=== PATIENT | female | born 1945 | race Caucasian/White ===

== ENCOUNTER 2016-05-09 08:00 | Outpatient (CLI) | payer MEDICARE, OTHER | END 2016-05-09 08:01 | disposition home or self-care (01) | DX: I10 Essential (primary) hypertension (principal) ==

== ENCOUNTER 2016-06-19 09:50 | Outpatient (CLI) | payer MEDICARE, OTHER | END 2016-06-19 09:51 | disposition home or self-care (01) | DX: E87.1 Hypo-osmolality and hyponatremia (principal) ==

== ENCOUNTER 2016-07-25 11:19 | Outpatient (CLI) | payer MEDICARE, OTHER | END 2016-07-25 11:20 | DX: E87.1 Hypo-osmolality and hyponatremia (principal) ==

== ENCOUNTER 2016-08-15 16:14 | Outpatient (CLI) | payer MEDICARE, OTHER ==
[2016-08-15 13:42] LABS: CALCIUM 9.5 mg/dL (8.5-10.3); CREATININE 0.6 mg/dL (0.4-1.0); POTASSIUM 4.2 mmol/L (3.5-5.0)
== END 2016-08-15 16:15 | disposition home or self-care (01) ==
LOC: LAB.N 16:14
PROVIDERS: ATTEND Family Medicine
DX: E87.1 Hypo-osmolality and hyponatremia (principal)
CPT/HCPCS: 36415; 80048

== ENCOUNTER 2016-10-06 12:40 | Outpatient (CLI) | payer MEDICARE, OTHER ==
[2016-10-06 13:14] LABS: CALCIUM 9.1 mg/dL (8.5-10.3); CREATININE 0.6 mg/dL (0.4-1.0); POTASSIUM 4.2 mmol/L (3.5-5.0)
== END 2016-10-06 12:41 | disposition home or self-care (01) ==
LOC: LAB 12:40
PROVIDERS: ATTEND Family Medicine
DX: E87.1 Hypo-osmolality and hyponatremia (principal)
CPT/HCPCS: 36415; 80048

== ENCOUNTER → 2016-11-21 | Outpatient (CLI) | payer MEDICARE, OTHER ==
[2016-11-21 21:07] LABS: BASOPHILS % (AUTO) 0.3 %; EOSINOPHILS # (AUTO) 0.1 10^3/uL (0.0-0.7); HCT - HEMATOCRIT 41.7 % (37.0-47.0); LYMPHOCYTES # (AUTO) 1.8 10^3/uL (1.5-3.5); LYMPHOCYTES % (AUTO) 13.7 %; MEAN CORPUSCULAR HEMOGLOBIN 31.7 pg (27.0-31.0); MEAN CORPUSCULAR HGB CONC 33.5 g/dL (32.0-36.0); MEAN CORPUSCULAR VOLUME 94.7 fL (81.0-99.0); MONOCYTES % (AUTO) 7.4 %; NEUTROPHILS # (AUTO) 10.1 10^3/uL (1.5-6.6); NEUTROPHILS % (AUTO) 77.6 %; NUCLEATED RED BLOOD CELLS AUTO 0.1 /100WBC; RED BLOOD COUNT 4.41 10^6/uL (4.20-5.40); RED CELL DISTRIBUTION WIDTH 12.8 % (12.0-15.0)
== END ==
LOC: LAB.N 08:00
PROVIDERS: ATTEND Nurse Practitioner Gerontology
DX: K92.1 Melena (principal)
CPT/HCPCS: 36415; 85025

== ENCOUNTER 2016-11-24 08:00 | Outpatient (CLI) | payer MEDICARE, OTHER | END 2016-11-24 08:01 | disposition home or self-care (01) | LOC: LAB.R 08:00 | PROVIDERS: ATTEND Nurse Practitioner Gerontology | DX: K92.1 Melena (principal) | CPT/HCPCS: 82270 ==

== ENCOUNTER 2017-01-05 13:06 | Outpatient (CLI) | payer MEDICARE, OTHER ==
[2017-01-05 14:01] LABS: CALCIUM 9.4 mg/dL (8.5-10.3); CREATININE 0.7 mg/dL (0.4-1.0); POTASSIUM 3.6 mmol/L (3.5-5.0)
== END 2017-01-05 13:07 | disposition home or self-care (01) ==
LOC: LAB 13:06
PROVIDERS: ATTEND Family Medicine
DX: E87.1 Hypo-osmolality and hyponatremia (principal)
CPT/HCPCS: 36415; 80048

== ENCOUNTER 2017-03-16 10:10 | Outpatient (CLI) | payer MEDICARE, OTHER ==
[2017-03-16 14:06] LABS: BILIRUBIN,URINE NEGATIVE (NEGATIVE); GLUCOSE, URINE (UA) NEGATIVE (NEGATIVE); KETONES,URINE (UA) NEGATIVE (NEGATIVE); LEUKOCYTE ESTERASE, URINE MODERATE (NEGATIVE); NITRITE,URINE POSITIVE (NEGATIVE); OCCULT BLOOD,URINE SMALL (NEGATIVE); PROTEIN,URINE NEGATIVE (NEGATIVE); UROBILINOGEN,URINE 0.2 (NORMAL) E.U./dL (NORMAL)
[2017-03-16 14:14] LABS: CLARITY,URINE HAZY (CLEAR)
[2017-03-16 14:19] LABS: BACTERIA,URINE Moderate /HPF (None Seen); RBC,URINE 0-5 /HPF (0-5); SQUAMOUS EPITHELIAL CELL,UR RARE Squamous (<= Few); WBC CLUMPS,URINE PRESENT
== END 2017-03-16 10:11 | disposition home or self-care (01) ==
LOC: LAB.R 10:10
PROVIDERS: ATTEND Family Medicine
DX: N39.0 Urinary tract infection, site not specified (principal)
CPT/HCPCS: 81001; 87086

== ENCOUNTER 2017-04-26 08:52 | Outpatient (CLI) | payer MEDICARE, OTHER ==
[2017-04-26 13:18] LABS: BASOPHILS % (AUTO) 0.5 %; EOSINOPHILS # (AUTO) 0.2 10^3/uL (0.0-0.7); HGB - HEMOGLOBIN 12.9 g/dL (12.0-16.0); LYMPHOCYTES # (AUTO) 1.6 10^3/uL (1.5-3.5); LYMPHOCYTES % (AUTO) 37.8 %; MEAN CORPUSCULAR HEMOGLOBIN 32.9 pg (27.0-31.0); MEAN CORPUSCULAR HGB CONC 35.1 g/dL (32.0-36.0); MEAN CORPUSCULAR VOLUME 93.6 fL (81.0-99.0); MEAN PLATELET VOLUME 8.9 fL (7.9-10.8); MONOCYTES # (AUTO) 0.4 10^3/uL (0.0-1.0); MONOCYTES % (AUTO) 9.7 %; PLT - PLATELET COUNT 194 10^3/uL (130-450); RED BLOOD COUNT 3.91 10^6/uL (4.20-5.40); RED CELL DISTRIBUTION WIDTH 13.2 % (12.0-15.0); WHITE BLOOD COUNT 4.1 x10^3/uL (4.8-10.8)
[2017-04-26 13:50] LABS: ALBUMIN 3.7 g/dL (3.2-5.5); ALBUMIN/GLOBULIN RATIO 1.4 (1.0-2.2); ALKALINE PHOSPHATASE 114 IU/L (42-121); ALT ALANINE AMINOTRANSFERASE 20 IU/L (10-60); AST ASPARTATE AMINOTRANSFERASE 23 IU/L (10-42); BILIRUBIN,TOTAL 0.3 mg/dL (0.2-1.0); BUN - BLOOD UREA NITROGEN 19 mg/dL (6-20); CALCIUM 8.7 mg/dL (8.5-10.3); CARBON DIOXIDE - CO2 27 mmol/L (21-32); CHLORIDE 99 mmol/L (101-111); CHOL/HDL RATIO 2.5 (<4.4); CHOLESTEROL 231 mg/dL; CREATININE 0.6 mg/dL (0.4-1.0); GFR - MDRD 98 (>89); GLUCOSE 103 mg/dL (70-100); HDL CHOLESTEROL 94 mg/dL; LDL CHOLESTEROL,CALCULATED 121 mg/dL; LDL/HDL RATIO 1.3 (<4.4); SODIUM 130 mmol/L (135-145); TOTAL PROTEIN 6.3 g/dL (6.7-8.2); VLDL CHOLESTEROL 16 mg/dL
== END 2017-04-26 08:53 | disposition home or self-care (01) ==
LOC: LAB.N 08:52
PROVIDERS: ATTEND Family Medicine
DX: Z51.81 Encounter for therapeutic drug level monitoring (principal); E87.1 Hypo-osmolality and hyponatremia; I10 Essential (primary) hypertension; R56.9 Unspecified convulsions
CPT/HCPCS: 36415; 80053; 80061; 83721; 84443; 85025

== ENCOUNTER 2017-10-24 09:05 | Outpatient (CLI) | payer MEDICARE, OTHER ==
[2017-10-24 09:35] LABS: CALCIUM 9.2 mg/dL (8.5-10.3); CREATININE 0.6 mg/dL (0.4-1.0)
== END 2017-10-24 09:06 | disposition home or self-care (01) ==
LOC: LAB 09:05
PROVIDERS: ATTEND Family Medicine
DX: E87.1 Hypo-osmolality and hyponatremia (principal); I10 Essential (primary) hypertension
CPT/HCPCS: 36415; 80048

== ENCOUNTER 2018-02-22 11:24 | Outpatient (CLI) | payer MEDICARE, OTHER | END 2018-02-22 23:59 | disposition home or self-care (01) | LOC: RT.N 11:24 | PROVIDERS: ATTEND Family Medicine | DX: R06.00 Dyspnea, unspecified (principal) | CPT/HCPCS: 93005 ==

== ENCOUNTER 2018-04-23 08:07 | Outpatient (CLI) | payer MEDICARE, OTHER ==
[2018-04-23 08:33] LABS: CALCIUM 9.2 mg/dL (8.5-10.3); CREATININE 0.6 mg/dL (0.4-1.0)
== END 2018-04-23 08:08 | disposition home or self-care (01) ==
LOC: LAB 08:07
PROVIDERS: ATTEND Nurse Practitioner
DX: I10 Essential (primary) hypertension (principal)
CPT/HCPCS: 36415; 80048

== ENCOUNTER 2018-11-25 07:01 | Outpatient (CLI) | payer MEDICARE, OTHER ==
[2018-11-25 07:41] LABS: BASOPHILS % (AUTO) 0.7 %; EOSINOPHILS # (AUTO) 0.4 10^3/uL (0.0-0.7); EOSINOPHILS % (AUTO) 6.3 %; HGB - HEMOGLOBIN 13.4 g/dL (12.0-16.0); LYMPHOCYTES # (AUTO) 2.3 10^3/uL (1.5-3.5); MEAN CORPUSCULAR HEMOGLOBIN 31.5 pg (27.0-31.0); MEAN CORPUSCULAR HGB CONC 33.7 g/dL (32.0-36.0); MEAN CORPUSCULAR VOLUME 93.6 fL (81.0-99.0); MEAN PLATELET VOLUME 10.3 fL (7.9-10.8); MONOCYTES # (AUTO) 0.5 10^3/uL (0.0-1.0); MONOCYTES % (AUTO) 8.6 %; NEUTROPHILS # (AUTO) 2.5 10^3/uL (1.5-6.6); NEUTROPHILS % (AUTO) 44.4 %; PLT - PLATELET COUNT 239 10^3/uL (130-450); RED BLOOD COUNT 4.25 10^6/uL (4.20-5.40); WHITE BLOOD COUNT 5.7 x10^3/uL (4.8-10.8)
[2018-11-25 08:08] LABS: ALBUMIN 3.7 g/dL (3.2-5.5); ALBUMIN/GLOBULIN RATIO 1.2 (1.0-2.2); ALKALINE PHOSPHATASE 121 IU/L (42-121); ALT ALANINE AMINOTRANSFERASE 20 IU/L (10-60); AST ASPARTATE AMINOTRANSFERASE 24 IU/L (10-42); BILIRUBIN,TOTAL 0.5 mg/dL (0.2-1.0); BUN - BLOOD UREA NITROGEN 25 mg/dL (6-20); CALCIUM 9.2 mg/dL (8.5-10.3); CARBON DIOXIDE - CO2 28 mmol/L (21-32); CHLORIDE 102 mmol/L (101-111); CREATININE 0.6 mg/dL (0.4-1.0); GFR - MDRD 98 (>89); GLUCOSE 104 mg/dL (70-100); SODIUM 136 mmol/L (135-145); TOTAL PROTEIN 6.9 g/dL (6.7-8.2)
== END 2018-11-25 07:02 | disposition home or self-care (01) ==
LOC: LAB 07:01
PROVIDERS: ATTEND Psychiatry & Neurology Neurology
DX: Z51.81 Encounter for therapeutic drug level monitoring (principal)
CPT/HCPCS: 36415; 80053; 80156; 81599; 85025

== ENCOUNTER 2019-02-21 07:16 | Outpatient (CLI) | payer MEDICARE, OTHER ==
[2019-02-21 07:56] LABS: ALBUMIN/GLOBULIN RATIO 1.3 (1.0-2.2); BILIRUBIN,TOTAL 0.5 mg/dL (0.2-1.0); CREATININE 0.7 mg/dL (0.4-1.0)
[2019-02-21 08:01] LABS: BASOPHILS % (AUTO) 0.8 %; EOSINOPHILS # (AUTO) 0.2 10^3/uL (0.0-0.7); HGB - HEMOGLOBIN 13.5 g/dL (12.0-16.0); LYMPHOCYTES # (AUTO) 2.1 10^3/uL (1.5-3.5); LYMPHOCYTES % (AUTO) 43.4 %; MEAN CORPUSCULAR HEMOGLOBIN 32.5 pg (27.0-31.0); MEAN CORPUSCULAR HGB CONC 34.8 g/dL (32.0-36.0); MEAN CORPUSCULAR VOLUME 93.3 fL (81.0-99.0); MEAN PLATELET VOLUME 10.4 fL (7.9-10.8); MONOCYTES # (AUTO) 0.4 10^3/uL (0.0-1.0); MONOCYTES % (AUTO) 8.9 %; NEUTROPHILS % (AUTO) 41.7 %; PLT - PLATELET COUNT 231 10^3/uL (130-450); RED BLOOD COUNT 4.16 10^6/uL (4.20-5.40); RED CELL DISTRIBUTION WIDTH 12.6 % (12.0-15.0); WHITE BLOOD COUNT 4.8 x10^3/uL (4.8-10.8)
== END 2019-02-21 07:17 | disposition home or self-care (01) ==
LOC: LAB 07:16
PROVIDERS: ATTEND Psychiatry & Neurology Neurology
DX: Z51.81 Encounter for therapeutic drug level monitoring (principal); Z79.899 Other long term (current) drug therapy
CPT/HCPCS: 36415; 80053; 80156; 80157; 81599; 85025

== ENCOUNTER 2019-04-07 14:18 | Outpatient (CLI) | payer MEDICARE, OTHER ==
[2019-04-07 14:48] LABS: BILIRUBIN,URINE NEGATIVE (NEGATIVE); GLUCOSE, URINE (UA) NEGATIVE (NEGATIVE); KETONES,URINE (UA) NEGATIVE (NEGATIVE); LEUKOCYTE ESTERASE, URINE NEGATIVE (NEGATIVE); NITRITE,URINE NEGATIVE (NEGATIVE); OCCULT BLOOD,URINE NEGATIVE (NEGATIVE); PROTEIN,URINE NEGATIVE (NEGATIVE); UROBILINOGEN,URINE 0.2 (NORMAL) E.U./dL (NORMAL)
[2019-04-07 14:51] LABS: CLARITY,URINE CLEAR (CLEAR)
[2019-04-07 14:57] LABS: BASOPHILS # (AUTO) 0.1 10^3/uL (0.0-0.1); BASOPHILS % (AUTO) 0.8 %; EOSINOPHILS # (AUTO) 0.3 10^3/uL (0.0-0.7); EOSINOPHILS % (AUTO) 4.3 %; LYMPHOCYTES % (AUTO) 32.3 %; MEAN CORPUSCULAR HEMOGLOBIN 32.4 pg (27.0-31.0); MEAN CORPUSCULAR HGB CONC 34.1 g/dL (32.0-36.0); MEAN CORPUSCULAR VOLUME 95.1 fL (81.0-99.0); MEAN PLATELET VOLUME 10.3 fL (7.9-10.8); MONOCYTES # (AUTO) 0.5 10^3/uL (0.0-1.0); MONOCYTES % (AUTO) 7.6 %; NEUTROPHILS # (AUTO) 3.3 10^3/uL (1.5-6.6); NEUTROPHILS % (AUTO) 54.7 %; PLT - PLATELET COUNT 245 10^3/uL (130-450); RED BLOOD COUNT 4.32 10^6/uL (4.20-5.40); RED CELL DISTRIBUTION WIDTH 12.5 % (12.0-15.0); WHITE BLOOD COUNT 6.1 x10^3/uL (4.8-10.8)
[2019-04-07 15:03] LABS: CALCIUM 9.4 mg/dL (8.5-10.3); CREATININE 0.7 mg/dL (0.4-1.0)
[2019-04-07 15:25] LABS: HB2 TOTAL 13.9 g/dL; HEMOGLOBIN A1C 0.6 g/dL; HEMOGLOBIN A1C % 6.1 % (4.6-6.2)
== END 2019-04-07 14:19 | disposition home or self-care (01) ==
LOC: LAB 14:18
PROVIDERS: ATTEND Orthopaedic Surgery
DX: Z01.812 Encounter for preprocedural laboratory examination (principal); R73.9 Hyperglycemia, unspecified; N39.0 Urinary tract infection, site not specified
CPT/HCPCS: 36415; 80048; 81001; 81003; 83036; 85025; 85027; 87086

== ENCOUNTER 2019-10-17 12:37 | Outpatient (CLI) | payer MEDICARE, OTHER | END 2019-10-17 12:38 | disposition home or self-care (01) | LOC: COV 12:37 | PROVIDERS: ATTEND Family Medicine | DX: R05 Cough (principal); R53.83 Other fatigue; R11.2 Nausea with vomiting, unspecified; Z20.828 Contact with and (suspected) exposure to other viral communicable diseases ==

== ENCOUNTER 2019-10-22 07:49 | Outpatient (CLI) | payer MEDICARE, OTHER ==
[2019-10-22 08:02] LABS: BASOPHILS % (AUTO) 0.7 %; EOSINOPHILS # (AUTO) 0.5 10^3/uL (0.0-0.7); EOSINOPHILS % (AUTO) 9.2 %; HGB - HEMOGLOBIN 13.7 g/dL (12.0-16.0); LYMPHOCYTES # (AUTO) 2.4 10^3/uL (1.5-3.5); LYMPHOCYTES % (AUTO) 41.2 %; MEAN CORPUSCULAR HEMOGLOBIN 31.2 pg (27.0-31.0); MEAN CORPUSCULAR HGB CONC 32.9 g/dL (32.0-36.0); MEAN CORPUSCULAR VOLUME 94.8 fL (81.0-99.0); MEAN PLATELET VOLUME 10.4 fL (7.9-10.8); MONOCYTES # (AUTO) 0.6 10^3/uL (0.0-1.0); MONOCYTES % (AUTO) 9.5 %; NEUTROPHILS # (AUTO) 2.3 10^3/uL (1.5-6.6); NEUTROPHILS % (AUTO) 39.2 %; PLT - PLATELET COUNT 229 10^3/uL (130-450); RED BLOOD COUNT 4.39 10^6/uL (4.20-5.40); RED CELL DISTRIBUTION WIDTH 12.8 % (12.0-15.0); WHITE BLOOD COUNT 5.8 x10^3/uL (4.8-10.8)
[2019-10-22 08:24] LABS: ALBUMIN/GLOBULIN RATIO 1.3 (1.0-2.2); ALKALINE PHOSPHATASE 130 IU/L (42-121); ALT ALANINE AMINOTRANSFERASE 18 IU/L (10-60); AST ASPARTATE AMINOTRANSFERASE 20 IU/L (10-42); BILIRUBIN,TOTAL 0.6 mg/dL (0.2-1.0); BUN - BLOOD UREA NITROGEN 30 mg/dL (6-20); CALCIUM 9.3 mg/dL (8.5-10.3); CARBAMAZEPINE (TEGRETOL) 6.3 ug/mL; CARBON DIOXIDE - CO2 27 mmol/L (21-32); CHLORIDE 103 mmol/L (101-111); CREATININE 0.7 mg/dL (0.4-1.0); GLUCOSE 115 mg/dL (70-100); SODIUM 136 mmol/L (135-145)
== END 2019-10-22 07:50 | disposition home or self-care (01) ==
LOC: LAB 07:49
PROVIDERS: ATTEND Psychiatry & Neurology Neurology
DX: Z51.81 Encounter for therapeutic drug level monitoring (principal); Z79.899 Other long term (current) drug therapy
CPT/HCPCS: 36415; 80053; 80156; 85025

== ENCOUNTER 2020-04-30 07:00 | Outpatient (CLI) | payer MEDICARE, OTHER ==
[2020-04-30 08:47] LABS: ALBUMIN/GLOBULIN RATIO 1.3 (1.0-2.2); ALKALINE PHOSPHATASE 121 IU/L (42-121); ALT ALANINE AMINOTRANSFERASE 21 IU/L (10-60); AST ASPARTATE AMINOTRANSFERASE 23 IU/L (10-42); BILIRUBIN,TOTAL 0.7 mg/dL (0.2-1.0); BUN - BLOOD UREA NITROGEN 26 mg/dL (6-20); CALCIUM 9.4 mg/dL (8.5-10.3); CARBAMAZEPINE (TEGRETOL) 7.7 ug/mL; CARBON DIOXIDE - CO2 26 mmol/L (21-32); CHLORIDE 103 mmol/L (101-111); CK- CREATINE KINASE 54 IU/L (22-269); CREATININE 0.6 mg/dL (0.4-1.0); GLUCOSE 104 mg/dL (70-100)
== END 2020-04-30 23:59 | disposition home or self-care (01) ==
LOC: LAB 07:00
PROVIDERS: ATTEND Psychiatry & Neurology Neurology
DX: G40.909 Epilepsy, unspecified, not intractable, without status epilepticus (principal); Z51.81 Encounter for therapeutic drug level monitoring; M79.10 Myalgia, unspecified site
CPT/HCPCS: 36415; 80053; 80156; 82085; 82550; 84443

== ENCOUNTER 2020-05-12 09:33 | Outpatient (CLI) | payer MEDICARE, OTHER | END 2020-05-12 09:34 | disposition home or self-care (01) | LOC: LAB 09:33 | PROVIDERS: ATTEND Internal Medicine Cardiovascular Disease | DX: I48.91 Unspecified atrial fibrillation (principal); I10 Essential (primary) hypertension | CPT/HCPCS: 36415; 83735; 84443 ==

== ENCOUNTER 2020-05-21 11:37 | Outpatient (CLI) | payer MEDICARE, OTHER ==
[2020-05-21 18:33] LABS: CALCIUM 9.7 mg/dL (8.5-10.3); CREATININE 0.7 mg/dL (0.4-1.0); POTASSIUM 4.6 mmol/L (3.5-5.0)
== END 2020-05-21 11:38 | disposition home or self-care (01) ==
LOC: LAB.N 11:37
PROVIDERS: ATTEND Internal Medicine Cardiovascular Disease
DX: I10 Essential (primary) hypertension (principal)
CPT/HCPCS: 36415; 80048

== ENCOUNTER 2020-05-28 08:00 | Outpatient (CLI) | payer MEDICARE, OTHER | END 2020-05-28 23:59 | disposition home or self-care (01) | LOC: LAB.N 08:00 | PROVIDERS: ATTEND Nurse Practitioner Family | DX: Z79.01 Long term (current) use of anticoagulants (principal) ==

== ENCOUNTER 2020-06-02 08:00 | Outpatient (CLI) | payer MEDICARE, OTHER | END 2020-06-02 23:59 | disposition home or self-care (01) | LOC: LAB.WCP 08:00 | PROVIDERS: ATTEND Nurse Practitioner Family | DX: Z79.01 Long term (current) use of anticoagulants (principal) ==

== ENCOUNTER 2020-06-11 08:00 | Outpatient (CLI) | payer MEDICARE, OTHER | END 2020-06-11 23:59 | disposition home or self-care (01) | LOC: LAB.N 08:00 | PROVIDERS: ATTEND Nurse Practitioner Family | DX: Z51.81 Encounter for therapeutic drug level monitoring (principal); Z79.01 Long term (current) use of anticoagulants ==

== ENCOUNTER 2020-07-02 08:00 | Outpatient (CLI) | payer MEDICARE, OTHER | END 2020-07-02 23:59 | disposition home or self-care (01) | LOC: LAB.N 08:00 | PROVIDERS: ATTEND Nurse Practitioner Family | DX: I48.91 Unspecified atrial fibrillation (principal); Z79.01 Long term (current) use of anticoagulants ==

== ENCOUNTER 2020-07-09 08:00 | Outpatient (CLI) | payer MEDICARE, OTHER | END 2020-07-09 23:59 | disposition home or self-care (01) | LOC: LAB.N 08:00 | PROVIDERS: ATTEND Nurse Practitioner Family | DX: I48.91 Unspecified atrial fibrillation (principal); Z79.01 Long term (current) use of anticoagulants ==

== ENCOUNTER 2020-07-23 08:00 | Outpatient (CLI) | payer MEDICARE, OTHER | END 2020-07-23 23:59 | disposition home or self-care (01) | LOC: LAB.N 08:00 | PROVIDERS: ATTEND Nurse Practitioner Family | DX: I48.91 Unspecified atrial fibrillation (principal); Z79.01 Long term (current) use of anticoagulants ==

== ENCOUNTER 2020-08-06 08:00 | Outpatient (CLI) | payer MEDICARE, OTHER | END 2020-08-06 23:59 | disposition home or self-care (01) | LOC: LAB.N 08:00 | PROVIDERS: ATTEND Nurse Practitioner Family | DX: I48.91 Unspecified atrial fibrillation (principal); Z79.01 Long term (current) use of anticoagulants ==

== ENCOUNTER 2020-08-20 10:41 | Outpatient (CLI) | payer MEDICARE, OTHER | END 2020-08-20 10:42 | disposition home or self-care (01) | LOC: LAB 10:41 | PROVIDERS: ATTEND Internal Medicine Cardiovascular Disease | DX: Z01.812 Encounter for preprocedural laboratory examination (principal); I48.19 Other persistent atrial fibrillation; I10 Essential (primary) hypertension; Z20.822 Contact with and (suspected) exposure to COVID-19 ==

== ENCOUNTER 2020-08-31 10:06 | Outpatient (CLI) | payer MEDICARE, OTHER ==
[2020-08-31 11:02] VITALS: BP 142/86
--- NOTE | 2020-08-31 11:02 | SLEEP CARE CONSULTATION ---
Information from patient questionnaire entered by Ora Yo. I have reviewed and concur with the information entered by Ora Yo. This document represents the service I personally performed and the decisions made by me, Scarlett Gil ARNP. History of Present Illness Service Date and Time: 08/31/2020 1006 Reason for Visit: New patient Chief Complaint: reports: Snoring, Observed pauses in breathing (noted during cardiac monitoring), Fatigue (takes a lot of medications that cause fatigue), Frequent awakenings at night. denies: Unrefreshed sleep (depends on hours slept) Date of Onset: snoring: on and off, not loud, want to exercise Usual bedtime: 10 pm Time it takes to fall asleep: 30-60 minutes Snores at night: Yes (purr sounding) Observed to quit breathing while asleep: No Sleeps alone due to snoring: No Number of times waking at night: 5 Reasons for waking at night: reports: Bathroom. denies: Choking, Snoring, Gasping for air Toss, Turn, or Twitch while sleeping: Yes Recalls having dreams: Yes Usually gets out of bed at: 6:45 am Feels refreshed in the morning: Yes (some) Morning headache: No Sleepy or fatigued during the day: Yes Ever fallen asleep while driving: No Takes day naps: Yes (a little; 4 days of week, about 15 minutes long) Dreams during day naps: No Prior sleep studies: No Additional HPI information: I had the pleasure of seeing MEGHA GIBSON today regarding the possibility of her having a sleep disorder. Her current complaints are observed pauses in breathing, snoring, fatigue and frequent night awakenings. 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 Continue present she has a color television console monitor that showed a 3-minute pause in her breathing and she does have a history of snoring so her doctor sent her here for evaluation.She is on warfarin for her atrial fibrillation. Her is on a CPAP machine and she states she thinks that they will pause with when she held her breath to listen to his breathing. She states she is on many medications that do cause fatigue and sometimes she may awaken refreshed but overall is usually somewhat refreshed in the mornings. She takes naps about 4 days out of the week for about 15 minutes. She is trying to lose weight to take the pressure off of her knees. She does have a history of a hip replacement. - Parasomnia Symptoms Ever been unable to move upon waking from sleep: No Walks in sleep: No Talks in sleep: No Ever acted out dreams in sleep: No Ever felt weak in the knees when startled or emotional: No Bothered by creepy, crawly, restless sensations in legs: Yes Problems with memory or concentration: No Subjective Initial [place] Sleepiness Scale score: 11 (in 2020) Past Medical History Past Medical History: reports: Hypertension, Arthritis, Arrythmia (Atrial fibrillation), Anxiety, Other (epilepsy, hives) Social History The patient's occupation is a Retired. Patient is and lives in [place]. Have you smoked in the past 12 months: No Alcohol use: Yes Alcohol amount and frequency: 1 drink of wine 1-2 times a week Caffeine use: Yes Caffeine amount and frequency: 8 oz every morning Family History Family history of sleep disordered breathing: No (daughter snores) Allergies and Home Medications Drug allergies reviewed: Yes (primidone) Home medication list reviewed: Yes Allergy and home medication list: Zyrtec Tegretol Clonidine Losartan Warfarin Multi-Vitamin, gummy Calcium Review of Systems Weight gain over past 5 years: 50 Weight loss over past 5 years: 11-15 Cardiovascular: reports: high blood pressure, irregular heart rate or pulse Urinary: reports: frequency (every hour at night) Neurological: reports: seizure (none since 1972) Psychiatric: reports: anxiety (stress) Ear/Nose/Throat: reports: sinus problems (drip), tonsillectomy (at 5 yrs old), wisdom teeth removed Immunologic: reports: rash, itching Physical Exam Blood Pressure: 142/86 Cuff size: long Heart Rate: 75 O2 Saturation: 97 Height: 5 ft 5 in Weight: 190 lb Body Mass Index: 31.6 BMI Classification: Obese Neck circumference: 15.25 (inches) Soft palate: long Hard palate: normal Uvula: normal Uvula visualization: 100% Mallampati Class I Tongue: enlarged in size with teeth coughlin on lateral edges Tonsils: absent bilaterally Neck: normal w/o lymphadenopathy or thyromegaly Heart: irregular rhythm Lungs: clear bilaterally Impression and Plan 1. Suspected Obstructive Sleep Apnea-Hypopnea Syndrome, as suggested by a history of loud and irregular snoring, observed cessation of breath while asleep, and frequent awakening during the night. Narrow oropharynx and obesity are common predisposing factors for obstructive sleep apnea-hypopnea syndrome. I recommend proceeding to polysomnography to confirm the diagnosis and to assess severity. If the patient has significant sleep disordered breathing, a manual CPAP titration study will also be performed to find the optimal treatment pressure. I informed the patient of what the sleep studies involve and after some discussion, obtained agreement to proceed. The pathophysiology of obstructive sleep apnea-hypopnea syndrome was discussed with the patient and health risks of cardiovascular and cerebrovascular disease if not treated. AAS brochure for obstructive sleep apnea-hypopnea syndrome given and reviewed. Risks of drowsy driving discussed in detail and patient advised to avoid long distance driving and to mechanic recovery at the first sign of drowsiness. Patient agreed to plan. Patient is trying to lose weight to take pressure off her knees. * Schedule polysomnography +- manual CPAP titration study and return in 1-2 weeks after the study to discuss result and initiate therapy. * Avoid long distance driving or driving when feeling sleepy. * Avoid alcohol, sedative and muscle relaxant around bedtime. * Continue to try to lose weight. * Review instructions provided by trained office staff on how to prepare for the sleep study. * Return for follow-up after sleep study completed. Counseling Topics: Weight loss health impact Visit Type: In Office Time Spent with Patient (minutes): 37 Provider Statement: I spent 100% of the Face to Face Visit with the patient with greater than 50% spent counseling the patient and coordination of care.
== END 2020-08-31 10:07 | disposition home or self-care (01) ==
LOC: SC 10:06
PROVIDERS: ATTEND Nurse Practitioner Family
DX: R06.81 Apnea, not elsewhere classified (principal); G47.8 Other sleep disorders; R06.83 Snoring; E66.9 Obesity, unspecified; Z68.31 Body mass index [BMI] 31.0-31.9, adult
CPT/HCPCS: 99203; G0463; 99212

== ENCOUNTER 2020-09-08 08:00 | Outpatient (CLI) | payer MEDICARE, OTHER | END 2020-09-08 23:59 | disposition home or self-care (01) | LOC: LAB.F 08:00 | PROVIDERS: ATTEND Family Medicine | DX: I48.91 Unspecified atrial fibrillation (principal); Z79.01 Long term (current) use of anticoagulants ==

== ENCOUNTER 2020-09-15 08:00 | Outpatient (CLI) | payer MEDICARE, OTHER | END 2020-09-15 23:59 | disposition home or self-care (01) | LOC: LAB.N 08:00 | PROVIDERS: ATTEND Family Medicine | DX: I48.91 Unspecified atrial fibrillation (principal); Z79.01 Long term (current) use of anticoagulants ==

== ENCOUNTER 2020-09-22 08:00 | Outpatient (CLI) | payer MEDICARE, OTHER | END 2020-09-22 23:59 | disposition home or self-care (01) | LOC: LAB.N 08:00 | PROVIDERS: ATTEND Family Medicine | DX: I48.91 Unspecified atrial fibrillation (principal); Z79.01 Long term (current) use of anticoagulants ==

== ENCOUNTER 2020-09-29 08:00 | Outpatient (CLI) | payer MEDICARE, OTHER | END 2020-09-29 23:59 | disposition home or self-care (01) | LOC: LAB.N 08:00 | PROVIDERS: ATTEND Family Medicine | DX: I48.91 Unspecified atrial fibrillation (principal); Z79.01 Long term (current) use of anticoagulants ==

== ENCOUNTER 2020-10-06 08:00 | Outpatient (CLI) | payer MEDICARE, OTHER | END 2020-10-06 23:59 | disposition home or self-care (01) | LOC: LAB.N 08:00 | PROVIDERS: ATTEND Family Medicine | DX: I48.91 Unspecified atrial fibrillation (principal); Z79.01 Long term (current) use of anticoagulants ==

== ENCOUNTER 2020-10-15 08:00 | Outpatient (CLI) | payer MEDICARE, OTHER | END 2020-10-15 23:59 | disposition home or self-care (01) | LOC: LAB.N 08:00 | PROVIDERS: ATTEND Family Medicine | DX: I48.91 Unspecified atrial fibrillation (principal); Z79.01 Long term (current) use of anticoagulants ==

== ENCOUNTER 2020-10-20 08:00 | Outpatient (CLI) | payer MEDICARE, OTHER | END 2020-10-20 23:59 | disposition home or self-care (01) | LOC: LAB.N 08:00 | PROVIDERS: ATTEND Family Medicine | DX: I48.91 Unspecified atrial fibrillation (principal); Z79.01 Long term (current) use of anticoagulants ==

== ENCOUNTER 2020-10-27 08:00 | Outpatient (CLI) | payer MEDICARE, OTHER | END 2020-10-27 23:59 | disposition home or self-care (01) | LOC: LAB.N 08:00 | PROVIDERS: ATTEND Family Medicine | DX: I48.91 Unspecified atrial fibrillation (principal); Z79.01 Long term (current) use of anticoagulants ==

== ENCOUNTER 2020-10-29 19:37 | Outpatient (CLI) | payer MEDICARE, OTHER | END 2020-10-29 19:38 | disposition home or self-care (01) | LOC: SC 19:37 | PROVIDERS: ATTEND Nurse Practitioner Family | DX: G47.61 Periodic limb movement disorder (principal); E66.9 Obesity, unspecified; Z68.31 Body mass index [BMI] 31.0-31.9, adult | CPT/HCPCS: 95810 ==

== ENCOUNTER 2020-11-02 07:25 | Outpatient (CLI) | payer MEDICARE, OTHER ==
[2020-11-02 08:07] LABS: ALBUMIN 3.9 g/dL (3.2-5.5); ALBUMIN/GLOBULIN RATIO 1.3 (1.0-2.2); BILIRUBIN,TOTAL 0.5 mg/dL (0.2-1.0); CALCIUM 9.6 mg/dL (8.5-10.3); CREATININE 0.7 mg/dL (0.4-1.0); POTASSIUM 4.1 mmol/L (3.5-5.0)
== END 2020-11-02 07:26 | disposition home or self-care (01) ==
LOC: LAB 07:25
PROVIDERS: ATTEND Physician Assistant Medical
DX: I48.0 Paroxysmal atrial fibrillation (principal)
CPT/HCPCS: 36415; 80053

== ENCOUNTER 2020-11-03 08:00 | Outpatient (CLI) | payer MEDICARE, OTHER | END 2020-11-03 23:59 | disposition home or self-care (01) | LOC: LAB.WCP 08:00 | PROVIDERS: ATTEND Family Medicine | DX: I48.91 Unspecified atrial fibrillation (principal); Z79.01 Long term (current) use of anticoagulants ==

== ENCOUNTER 2020-11-11 10:31 | Outpatient (CLI) | payer MEDICARE, OTHER ==
--- NOTE | 2020-11-11 10:59 | SLEEP CARE CONSULTATION ---
Information from patient questionnaire entered by Ora Yo. I have reviewed and concur with the information entered by Ora Yo. This document represents the service I personally performed and the decisions made by , Scarlett Gil ARNP. History of Present Illness Service Date and Time: 11/11/2020 1031 Initial [place] Sleepiness Scale score: 11 (in 2020) Current [place] Sleepiness Scale score: 4 Additional HPI information: MEGHA GIBSON returns with spouse for follow up and results of the recently performed polysomnography. The patient was informed of the following findings: No significant sleep disordered breathing with an average AHI of 0.9 and a tamia oxygen saturation of 89%. She had some light and infrequent snoring and some mild periodic leg movements of sleep. I explained the pathophysiology behind obstructive sleep apnea. Patient does not have sleep apnea and was advised how weight gain could increase the risk of developing sleep apnea in the future. I strongly encouraged the patient to lose weight. Patient has light and infrequent snoring. Snoring can be reduced by weight loss. Weight loss is best achieved with diet consult. Patient instructed to contact PCP for referral. Snoring can also be treated with an oral appliance from a dentist. Advised to check insurance coverage. In addition, an ENT evaluation can be do to see if other treatment is indicated. Patient counseled not drink alcohol less than 4 hours before bedtime as it can increase snoring and apnea. Patient was cautioned about risks of drowsy driving until sleepiness symptoms resolve. Sleep Study - Results Type of Sleep Study: Polysomnography Prior sleep studies: No Polysomnography/Home Sleep Study results: IMPRESSION: The quality of the study is good. The patient had reduced sleep efficiency due to frequent awakenings during the night. The sleep architecture was abnormal for sleep fragmentation and reduced amount of time spent in REM sleep. Respiratory monitoring showed no significant sleep disordered breathing (AHI = 0.9) or hypoxia (tamia oxygen saturation of 89%). The rare respiratory events occurred mainly during limited supine sleep (supine AHI = 2.7; non-supine = 0.79). Snore was light and infrequent. There was mild periodic leg movement of sleep not contributing to the sleep fragmentation. Cardiac rhythm was normal sinus rhythm without significant arrhythmia. No abnormal behavior (parasomnia) observed during the night. Allergies and Home Medications Home medication list reviewed: Yes (Pacerone - heart) Review of Systems Review of systems same as previous: No (cardioversion for Afib; NOAH) Physical Exam Heart Rate: 66 O2 Saturation: 100 Height: 5 ft 5 in Weight: 192 lb Body Mass Index: 31.9 BMI Classification: Obese Impression and Plan 1. Periodic limb movement, mild, that did not fragment patients sleep. Periodic limb movement of sleep (PLMS) is characterized by episodes of repetitive limb movements that occur during sleep and usually involve the lower limbs. The etiology is unknown but can be associated with restless leg syndrome (RLS), neuropathy, spinal cord diseases, kidney disease, rheumatological disorders, narcolepsy, obstructive sleep apnea, and REM sleep behavior disorder. Other factors that can increase PLMS and/or RLS are heredity and iron deficiency as reflected by a low serum ferritin level below 50 to 75mcg / L. Several medications can precipitate or aggravate PLMS such as selective serotonin re- uptake inhibitor antidepressants, tricyclic antidepressants, lithium, and dopamine receptor antagonists with the exception of bupropion. Caffeine can also aggravate PLMS and should be avoided. Sleep hygiene methods can also improve sleep as well as lifestyle changes such as regular exercise. Patient was advised that no treatment is needed at this time. If symptoms increase, then further evaluation is indicated. * Attempt to lose weight * Avoid alcohol consumption near bedtime * The patient is cautioned about driving until sleepiness is completely resolved. * Return as needed. Counseling Topics: Weight loss health impact Visit Type: In Office Other Participants: Spouse/Significant Other Time Spent with Patient (minutes): 20 Provider Statement: I spent 100% of the Face to Face Visit with the patient with greater than 50% spent counseling the patient and coordination of care.
== END 2020-11-11 10:32 | disposition home or self-care (01) ==
LOC: SC 10:31
PROVIDERS: ATTEND Nurse Practitioner Family
DX: G47.61 Periodic limb movement disorder (principal)
CPT/HCPCS: 99213; G0463; 99212

== ENCOUNTER 2020-11-17 08:00 | Outpatient (CLI) | payer MEDICARE, OTHER ==
[2020-11-17 17:56] LABS: BASOPHILS % (AUTO) 0.8 %; EOSINOPHILS # (AUTO) 0.2 10^3/uL (0.0-0.7); EOSINOPHILS % (AUTO) 4.6 %; HCT - HEMATOCRIT 40.6 % (37.0-47.0); HGB - HEMOGLOBIN 13.2 g/dL (12.0-16.0); LYMPHOCYTES # (AUTO) 1.8 10^3/uL (1.5-3.5); LYMPHOCYTES % (AUTO) 36.2 %; MEAN CORPUSCULAR HEMOGLOBIN 31.9 pg (27.0-31.0); MEAN CORPUSCULAR HGB CONC 32.5 g/dL (32.0-36.0); MEAN CORPUSCULAR VOLUME 98.1 fL (81.0-99.0); MEAN PLATELET VOLUME 10.9 fL (7.9-10.8); MONOCYTES # (AUTO) 0.5 10^3/uL (0.0-1.0); MONOCYTES % (AUTO) 9.9 %; NEUTROPHILS # (AUTO) 2.4 10^3/uL (1.5-6.6); NEUTROPHILS % (AUTO) 48.1 %; PLT - PLATELET COUNT 249 10^3/uL (130-450); RED BLOOD COUNT 4.14 10^6/uL (4.20-5.40); RED CELL DISTRIBUTION WIDTH 12.6 % (12.0-15.0)
[2020-11-17 18:11] LABS: INR 2.3 (0.8-1.2); PT - PROTHROMBIN TIME 25.5 secs (9.9-12.6)
[2020-11-17 18:24] LABS: CHOL/HDL RATIO 2.4 (<4.4); CHOLESTEROL 270 mg/dL; HDL CHOLESTEROL 112 mg/dL; LDL CHOLESTEROL,CALCULATED 142 mg/dL; LDL/HDL RATIO 1.3 (<4.4); TRIGLYCERIDES 78 mg/dL; VLDL CHOLESTEROL 16 mg/dL
[2020-11-17 18:27] LABS: THYROID STIMULATING HORMONE 2.34 uIU/mL (0.34-5.60)
[2020-11-17 20:27] LABS: ESTIMATED AVERAGE GLUCOSE 114 mg/dL (70-100); HEMOGLOBIN A1c% 5.6 % (4.27-6.07)
== END 2020-11-17 23:59 | disposition home or self-care (01) ==
LOC: LAB.WCP 08:00
PROVIDERS: ATTEND Family Medicine
DX: I48.91 Unspecified atrial fibrillation (principal); R73.01 Impaired fasting glucose
CPT/HCPCS: 36415; 80061; 83036; 83721; 84443; 85025; 85610

== ENCOUNTER 2020-11-24 08:00 | Outpatient (CLI) | payer MEDICARE, OTHER | END 2020-11-24 23:59 | disposition home or self-care (01) | LOC: LAB.WCP 08:00 | PROVIDERS: ATTEND Family Medicine | DX: I48.91 Unspecified atrial fibrillation (principal); Z79.01 Long term (current) use of anticoagulants ==

== ENCOUNTER 2020-12-01 08:00 | Outpatient (CLI) | payer MEDICARE, OTHER | END 2020-12-01 23:59 | disposition home or self-care (01) | LOC: LAB.WCP 08:00 | PROVIDERS: ATTEND Family Medicine | DX: I48.91 Unspecified atrial fibrillation (principal); Z79.01 Long term (current) use of anticoagulants ==

== ENCOUNTER 2020-12-08 08:00 | Outpatient (CLI) | payer MEDICARE, OTHER | END 2020-12-08 23:59 | disposition home or self-care (01) | LOC: LAB.N 08:00 | PROVIDERS: ATTEND Family Medicine | DX: I48.91 Unspecified atrial fibrillation (principal); Z79.01 Long term (current) use of anticoagulants ==

== ENCOUNTER 2020-12-15 08:00 | Outpatient (CLI) | payer MEDICARE, OTHER | END 2020-12-15 23:59 | disposition home or self-care (01) | LOC: LAB.N 08:00 | PROVIDERS: ATTEND Family Medicine | DX: I48.91 Unspecified atrial fibrillation (principal); Z79.01 Long term (current) use of anticoagulants ==

== ENCOUNTER 2020-12-22 08:00 | Outpatient (CLI) | payer MEDICARE, OTHER | END 2020-12-22 08:01 | disposition home or self-care (01) | LOC: LAB.N 08:00 | PROVIDERS: ATTEND Family Medicine | DX: I48.91 Unspecified atrial fibrillation (principal); Z79.01 Long term (current) use of anticoagulants ==

== ENCOUNTER 2020-12-29 08:00 | Outpatient (CLI) | payer MEDICARE, OTHER | END 2020-12-29 23:59 | disposition home or self-care (01) | LOC: LAB.N 08:00 | PROVIDERS: ATTEND Family Medicine | DX: I48.91 Unspecified atrial fibrillation (principal); Z79.01 Long term (current) use of anticoagulants ==

== ENCOUNTER 2021-01-05 08:00 | Outpatient (CLI) | payer MEDICARE, OTHER | END 2021-01-05 23:59 | disposition home or self-care (01) | LOC: LAB.WCP 08:00 | PROVIDERS: ATTEND Family Medicine | DX: I48.91 Unspecified atrial fibrillation (principal); Z79.01 Long term (current) use of anticoagulants ==

== ENCOUNTER 2021-01-12 08:00 | Outpatient (CLI) | payer MEDICARE, OTHER | END 2021-01-12 23:59 | disposition home or self-care (01) | LOC: LAB.N 08:00 | PROVIDERS: ATTEND Family Medicine | DX: I48.91 Unspecified atrial fibrillation (principal); Z79.01 Long term (current) use of anticoagulants ==

== ENCOUNTER 2021-01-15 02:39 | Outpatient (CLI) | payer MEDICARE, OTHER | END 2021-01-15 02:40 | disposition critical access hospital (66) | LOC: EMS 02:39 | DX: S69.92XA Unspecified injury of left wrist, hand and finger(s), initial encounter (principal); R42 Dizziness and giddiness; W18.30XA Fall on same level, unspecified, initial encounter; Y92.009 Unspecified place in unspecified non-institutional (private) residence as the place of occurrence of the external cause | CPT/HCPCS: A0425; A0427 ==

== ENCOUNTER 2021-01-15 02:44 | Emergency (ER) | payer MEDICARE, OTHER ==
--- NOTE | 2021-01-15 03:06 | ED Physician Documentation ---
PD HPI Fall - Stated complaint Stated Complaint: DIZZY, GLF, LEFT WRIST PAIN - Chief complaint Chief Complaint: Ext Problem - History obtained from History obtained from: Patient, EMS - History of Present Illness Mechanism of injury: Lost balance (she says she got up to go to bathroom and felt lightheaded and fell/weakness in legs. No full LOC as remembers the fall. Denies vertigo per se. Feeling it still with some head movement here though. When fell, she landed to left side with some pain in knee, but mainly left wrist deformity. No head.) Fall distance: Standing position (just stood up.) Where injury occurred: Home Timing - onset: How many minutes ago (30) Injury(ies) location: Left Lower Extremity (knee), Left Hand (wrist). No: Head, Chest, Abdomen Quality of pain: Pain Associated symptoms: No: LOC, AMS, Weakness, Paresthesias Worsens with: Movement, Palpation Contributing factors: Anticoagulated. No: Intoxicated Similar symptoms before: Has not had sx before Recently seen: Not recently seen Review of Systems Constitutional: denies: Fever, Chills Nose: denies: Rhinorrhea / runny nose, Congestion Throat: denies: Sore throat Cardiac: denies: Chest pain / pressure, Palpitations (history of atrial fib episodically without being able to feel it.) Respiratory: denies: Cough GI: denies: Abdominal Pain, Nausea, Vomiting, Diarrhea, Bloody / black stool : denies: Dysuria Skin: denies: Abrasion (s), Laceration (s) Musculoskeletal: reports: Extremity pain. denies: Neck pain, Back pain Neurologic: reports: Near syncope. 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 : None HEENT: None Psych: None Musculoskeletal: None Derm: None - Past Surgical History Past Surgical History: Yes Ortho: Other - Present Medications Home Medications: Ambulatory Orders Medication Instructions Recorded Confirmed Calcium Citrate 500 mg PO TID 11/17/13 01/15/21 Carbamazepine [Tegretol Xr] 200 mg PO QID 11/17/13 01/15/21 Cetirizine HCl [Zyrtec] 10 mg PO DAILY 11/17/13 01/15/21 Fluticasone [Flonase] 2 spr JESSI DAILY 11/17/13 01/15/21 Losartan [Cozaar] 100 mg PO DAILY 11/17/13 01/15/21 Multivitamin [Multivitamins] 1 tab PO DAILY 11/17/13 01/15/21 HYDROcod/ACETAM 5/325 [[place] 5/325] 1 ea PO Q6H PRN #15 tablet 01/15/21 Warfarin [Coumadin] 2.5 mg PO DAILY 01/15/21 01/15/21 - Allergies Allergies/Adverse Reactions: Allergies Allergy/AdvReac Type Severity Reaction Status Date / Time primidone [From Mysoline] Allergy Rash Verified 01/15/21 03:00 - Living Situation Living Situation: reports: With spouse/s.o. Living Arrangement: reports: At home, Other (they have a planned trip to [place] starting tomorrow (Jan 16) for 2 weeks. ) - Social History Does the pt smoke?: No Smoking Status: Never smoker Does the pt drink ETOH?: No Does the pt have substance abuse?: No - Immunizations Immunizations are current?: No Immunizations: TDAP >10years/unknown, Other immun not current - POLST Patient has POLST: No PD ED PE NORMAL - Vitals Vital signs reviewed: Yes - General General: Alert and oriented X 3, No acute distress, Well developed/nourished - HEENT HEENT: Atraumatic, EOMI (no nystagmus), Pharynx benign - Neck Neck: Supple, no meningeal sign, No adenopathy - Cardiac Cardiac: No: RRR (irregular but rate controlled in 60s. ) - Respiratory Respiratory: Clear bilaterally, Other (no chestwall tenderness. ) - Abdomen Abdomen: Soft, Non tender - Back Back: No CVA TTP, No spinal TTP - Derm Derm: Normal color, Warm and dry - Extremities Extremities: No edema, No calf tenderness / cord, Other (Left wrist with swelling and dorsal deformity distal radius. Good pulses and cap refill. ) - Neuro Neuro: Alert and oriented X 3, No motor deficit, No sensory deficit, Normal speech Results - Vitals Vitals: Vital Signs - 24 hr 01/15/21 01/15/21 01/15/21 02:49 04:53 06:00 Temperature 36.4 C L Heart Rate 57 L 64 Respiratory 18 18 18 Rate Blood Pressure 151/82 H 141/73 H 156/68 H O2 Saturation 98 97 96 Oxygen O2 Source Room air - EKG (time done) 03:48 Rate: Rate (enter#) (60) Rhythm: NSR [place]: Normal Intervals: Normal [place] QRS: Normal Ischemia: Normal ST segments. No: ST elevation c/w ischemia, ST depression - Tele (time rhythm occurred) arrival Telemetry / rhythm strip: Atrial fibrillation (rate of 60-65) - Labs Labs: Laboratory Tests 01/15/21 01/15/21 01/15/21 03:40 03:40 03:40 WBC 6.5 RBC 3.65 L Hgb 12.2 Hct 36.0 L MCV 98.6 MCH 33.4 H MCHC 33.9 RDW 12.7 Plt Count 194 MPV 10.5 Neut # (Auto) 3.9 Lymph # (Auto) 1.8 [place] # (Auto) 0.6 Eos # (Auto) 0.2 Baso # (Auto) 0.1 Absolute Nucleated RBC 0.00 Nucleated RBC % 0.0 PT INR Sodium 131 L Potassium 3.9 Chloride 97 L Carbon Dioxide 26 Anion Gap 8.0 BUN 27 H Creatinine 0.8 Estimated GFR (MDRD) 70 L Glucose 116 H Calcium 9.0 Magnesium 2.0 Total Bilirubin 0.8 AST 25 ALT 22 Alkaline Phosphatase 126 H Troponin I High Sens 8.9 Total Protein 6.7 Albumin 3.9 Globulin 2.8 Albumin/Globulin Ratio 1.4 Lipase 28 01/15/21 04:10 WBC RBC Hgb Hct MCV MCH MCHC RDW Plt Count MPV Neut # (Auto) Lymph # (Auto) [place] # (Auto) Eos # (Auto) Baso # (Auto) Absolute Nucleated RBC Nucleated RBC % PT 31.2 H INR 2.8 H Sodium Potassium Chloride Carbon Dioxide Anion Gap BUN Creatinine Estimated GFR (MDRD) Glucose Calcium Magnesium Total Bilirubin AST ALT Alkaline Phosphatase Troponin I High Sens Total Protein Albumin Globulin Albumin/Globulin Ratio Lipase - Rads (name of study) head CT Radiology: Prelim report reviewed (no ICH, no acute process. ), See rad report left wrist Radiology: Prelim report reviewed (comminuted intraarticular distal radius fracture with angulation. ), See rad report post reduction wrist Radiology: Prelim report reviewed (improved alignment. ), See rad report left knee Radiology: Prelim report reviewed (no fractures. ), See rad report Procedures - Reduction Body part reduced: Left, Wrist Fracture or dislocation: Fracture Anesthesia: Hematoma block Reduction aftercare: NV intact, Xray confirms reduction, Alignment improved, Splint applied, Sling PD MEDICAL DECISION MAKING - ED course Complexity details: reviewed results, re-evaluated patient, considered differential (fall from lightheaded when got up to go to bathroom. Wrist fracture. CT head without bleed. ), d/w patient, d/w network security consultant (Dr. Irizarry, manager construction [facility].) ED course: They are planning on going on a trip to [place] starting tomorrow. They are wondering if they should delay their trip or if seen orthopedics in 2 weeks on their return would be appropriate. I will contact on-call for [facility] to discuss. The patient has seen Dr. Chiquita Dougherty and so would like to continue care with that group. I talked with manager construction Dr. Irizarry, who said 2 week follow up is okay wqith the splint and/or can follow up in [place] for rexray/perhaps change to cast in interim and then f/u Dr. Dougherty on return. In particular would want change to cast if splint becomes uncomfortable. Departure - Departure Disposition: 01 Home, Self Care Clinical Impression: Light-headed feeling, Anticoagulant long-term use, Intermittent atrial fibrillation Accidental fall Qualifiers: Encounter type: initial encounter Qualified Code(s): W19.XXXA - Unspecified fall, initial encounter Left wrist fracture Qualifiers: Encounter type: initial encounter Fracture type: closed Qualified Code(s): S62.102A - Fracture of unspecified carpal bone, left wrist, initial encounter for closed fracture Condition: Stable Record reviewed to determine appropriate education?: Yes Instructions: ED Fx Colles Wrist Redu Requ Follow-Up: Chiquita Dougherty MD [Physician No Access] - Prescriptions: HYDROcod/ACETAM 5/325 [[place] 5/325] 1 ea PO Q6H PRN #15 tablet PRN Reason: Pain Comments: Keep the wrist splinted with minimal use. Ice elevate and rested often to reduce swelling. Follow-up with orthopedics, call for an appointment. Continue usual medications. Use Tylenol 500 mg 4 times a day regularly for pain or hydrocodone/APAP instead if needed for worse pain. Your INR today was 2.8. Your other electrolytes as well as kidney function blood sugar and EKG are good. Your heart rhythm was showing intermittent episodes of A. fib with rate control. Your blood pressure is good. I am not sure the cause of your lightheadedness earlier. Be sure to stay well-hydrated. I transmitted the prescription for the pain medicine to [facility] pharmacy in [place]. I talked with Dr. Irizarry, who is on-call for [facility], who said a 2- week timeframe is appropriate for follow-up. He suggested when you are in [place], you could go to a walk-in clinic or such and see if they would do an x-ray about a week from now to ensure its holding position well enough. Otherwise you could just call Dr. Dougherty's office and arrange a follow-up for immediately upon your return. He urged treatment for swelling with ice elevate and resting over the next several days. Discharge Date/Time: 01/15/21 08:08
[2021-01-15] MEDS: KETOROLAC 15 MG/ML VIAL IVP STA (03:19)
[2021-01-15] MEDS: HYDROmorphone 1 MG/ML CARPUJECT IVP STA (03:19)
[2021-01-15] MEDS: SODIUM CHLORIDE 0.9% 1,000 ML IV STA (03:19)
[2021-01-15] MEDS: BUPIVACAINE 0.5% PF 10 ML VIAL SUBQ STA (03:20)
[2021-01-15] MEDS: MECLIZINE 12.5 MG TABLET PO STA (03:20)
[2021-01-15 03:52] LABS: BASOPHILS # (AUTO) 0.1 10^3/uL (0.0-0.1); BASOPHILS % (AUTO) 0.8 %; EOSINOPHILS # (AUTO) 0.2 10^3/uL (0.0-0.7); EOSINOPHILS % (AUTO) 3.1 %; HGB - HEMOGLOBIN 12.2 g/dL (12.0-16.0); LYMPHOCYTES # (AUTO) 1.8 10^3/uL (1.5-3.5); LYMPHOCYTES % (AUTO) 27.6 %; MEAN CORPUSCULAR HEMOGLOBIN 33.4 pg (27.0-31.0); MEAN CORPUSCULAR HGB CONC 33.9 g/dL (32.0-36.0); MEAN CORPUSCULAR VOLUME 98.6 fL (81.0-99.0); MEAN PLATELET VOLUME 10.5 fL (7.9-10.8); MONOCYTES # (AUTO) 0.6 10^3/uL (0.0-1.0); MONOCYTES % (AUTO) 8.7 %; NEUTROPHILS # (AUTO) 3.9 10^3/uL (1.5-6.6); NEUTROPHILS % (AUTO) 59.6 %; PLT - PLATELET COUNT 194 10^3/uL (130-450); RED BLOOD COUNT 3.65 10^6/uL (4.20-5.40); RED CELL DISTRIBUTION WIDTH 12.7 % (12.0-15.0); WHITE BLOOD COUNT 6.5 x10^3/uL (4.8-10.8)
[2021-01-15 04:08] LABS: ALBUMIN 3.9 g/dL (3.2-5.5); ALBUMIN/GLOBULIN RATIO 1.4 (1.0-2.2); BILIRUBIN,TOTAL 0.8 mg/dL (0.2-1.0); CREATININE 0.8 mg/dL (0.4-1.0); POTASSIUM 3.9 mmol/L (3.5-5.0); TOTAL PROTEIN 6.7 g/dL (6.7-8.2)
[2021-01-15 04:23] LABS: INR 2.8 (0.8-1.2); PT - PROTHROMBIN TIME 31.2 secs (9.9-12.6)
[2021-01-15] MEDS: HYDROcod/ACET 5/325 Prepack 4 PO STA (06:05)
[2021-01-15 06:10] VITALS: BP 156/68
--- NOTE | 2021-01-15 08:12 | XRAY Report ---
PROCEDURE: Wrist 3 View LT INDICATIONS: fall with injury left wrist TECHNIQUE: 3 views of the wrist were acquired. COMPARISON: None FINDINGS: Bones: Osseous structures are demineralized. Comminuted intra-articular fracture of the distal rate i s. There is dorsal angulation and mild foreshortening. No additional fractures. Degenerative changes of the wrist and hand worse at the triscaphe joint. No dislocation. No suspicious bony lesions. Soft tissues: No suspicious soft tissue calcifications. Diffuse soft tissue swelling. IMPRESSION: Comminuted intra-articular fracture of the distal radius with dorsal angulation and foreshortening. Degenerative changes of the wrists and hand worse at the triscaphe joint. Agree with preliminary report. Reviewed by: George Guardado DO on 01/15/2021 7:10 AM GURINDER Approved by: George Guardado DO on 01/15/2021 7:10 AM GURINDER Station ID: [id number]
--- NOTE | 2021-01-15 08:20 | XRAY Report ---
PROCEDURE: Wrist 2 View LT INDICATIONS: post reduction TECHNIQUE: 2 views of the wrist were acquired. COMPARISON: Same-day wrist radiographs FINDINGS: Bones: Osseous demineralization Status post reduction and casting. Previously noted intra-articular c omminuted distal radius fracture is again noted. There is improvement of angulation. There is still d orsal displacement and slight foreshortening improved from prior examination. Additional ulnar styloi d fracture now demonstrating mild displacement. Degenerative changes of the wrist and hands unchanged . No suspicious bony lesions. Soft tissues: Soft tissue swelling. IMPRESSION: Improvement in alignment status post casting/reduction of previously noted intra-articular comminuted and displaced distal radius fracture. Mild displacement of ulnar styloid fracture. Reviewed by: George Guardado DO on 01/15/2021 7:19 AM GURINDER Approved by: George Guardado DO on 01/15/2021 7:19 AM GURINDER Station ID: [id number]
--- NOTE | 2021-01-15 08:21 | XRAY Report ---
PROCEDURE: Knee 3 View LT INDICATIONS: fall, with knee pain TECHNIQUE: 3 views of the left knee(s) were acquired. COMPARISON: None. FINDINGS: Bones: Osseous structures are demineralized. No fractures or dislocations. Mild tricompartment dege nerative spurring. No suspicious bony lesions. Soft tissues: No joint effusion. Small quadriceps insertion enthesophyte at the superior pole of th e patella. No suspicious soft tissue calcifications. IMPRESSION: No acute osseous abnormality. Agree with preliminary report. Reviewed by: George Guardado DO on 01/15/2021 7:20 AM GURINDER Approved by: George Guardado DO on 01/15/2021 7:20 AM GURINDER Station ID: [id number]
--- NOTE | 2021-01-15 08:24 | XRAY Report ---
PROCEDURE: Hip w/Pelvis 2-3V LT INDICATIONS: fall with pain now in hip too TECHNIQUE: AP pelvis with lateral view(s) of the left hip(s). COMPARISON: None. FINDINGS: Bones: Osseous structures are demineralized. Status post right total hip arthroplasty. No evidence o f hardware complication. No fractures or dislocations. Pelvic ring appears intact. No suspicious ranjeet ny lesions. Degenerative changes of the spine. There is marked degenerative changes of the left hip with complete joint space loss, osteophytosis, subchondral sclerosis, and subchondral cystic changes. Soft tissues: The visualized bowel gas pattern is normal. Postsurgical changes are noted of the mid line. Benign-appearing soft tissue calcifications within lateral thigh. IMPRESSION: No displaced fracture of the left hip within the limitations of bony demineralization. If clinical co ncern for fracture remains, consider cross-sectional imaging. Severe degenerative changes of the left hip. Agree with preliminary report. Reviewed by: George Guardado DO on 01/15/2021 7:23 AM GURINDER Approved by: George Guardado DO on 01/15/2021 7:23 AM GURINDER Station ID: [id number]
--- NOTE | 2021-01-15 09:13 | CT Report ---
PROCEDURE: HEAD WO INDICATIONS: fall, on coumadin TECHNIQUE: Noncontrast 4.5 mm thick angled axial sections acquired from the foramen magnum to the vertex. For r adiation dose reduction, the following was used: automated exposure control, adjustment of mA and/or kV according to patient size. COMPARISON: None. FINDINGS: Please note that preliminary report is noted within the same day wrist radiograph jacket. Image quality: Excellent. CSF spaces: Basal cisterns are patent. No acute hemorrhage. There is prominence of the CSF fluid adj acent to the cerebellum most prominent along the superior and lateral aspects with questionable mass effect. Brain: No midline shift. No intracranial masses or hemorrhage. There is deep and superficial white matter hypoattenuation with mild cerebral volume loss. Duff-white matter interface is normal. Skull and face: Calvarium and visualized facial bones are intact, without suspicious lesions. Sinuses: Visualized sinuses and mastoids are clear. IMPRESSION: Findings consistent with microvascular ischemic changes and cerebral volume loss without evidence of an acute intracranial hemorrhage or transcortical infarction. Mild prominence of the CSF spaces around the cerebellum which may be due to volume loss of the cerebe llum. There is however questionable mass effect raising concern for extra-axial fluid collection such as arachnoid cyst, chronic subdural or hygroma. Consider further evaluation with MRI. Findings discussed with Dr. Ribera of the ER by Dr. George Guardado at approximately 0810 hours AST on . Reviewed by: George Guardado DO on 01/15/2021 8:12 AM GURINDER Approved by: George Guardado DO on 01/15/2021 8:12 AM GURINDER Station ID: [id number]
--- NOTE | 2021-01-15 09:17 | ED Physician Documentation ---
ED Addendum - Addendum Addendum: 01/15/21 09:16 Took call from radiologist regarding head CT showing "mild prominence of the CSF spaces around the cerebellum which may be due to volume loss, there is questionable mass-effect raising concern for extra-axial fluid collection, consider further evaluation with MRI." I called the home and left a message for her to call me back regarding these findings, I also emailed her primary care physician, Dr. Mendosa, regarding the need for follow-up MRI. 01/15/21 13:37 She called back and we discussed the finding and need for follow-up MRI.
== END 2021-01-15 08:08 | disposition home or self-care (01) ==
LOC: EDUNIT# → ED 02:44
DX: Z79.01 Long term (current) use of anticoagulants (principal); R42 Dizziness and giddiness; S52.502A Unspecified fracture of the lower end of left radius, initial encounter for closed fracture; R94.02 Abnormal brain scan
CPT/HCPCS: 25605; 36415; 70450; 73100; 73110; 73502; 73562; 80053; 83690; 83735; 84484; 85025; 85610; 93005; 96374; 99284; A9270; J1170

== ENCOUNTER 2021-02-02 08:00 | Outpatient (CLI) | payer MEDICARE, OTHER | END 2021-02-02 23:59 | disposition home or self-care (01) | LOC: LAB.N 08:00 | PROVIDERS: ATTEND Family Medicine | DX: I48.91 Unspecified atrial fibrillation (principal); Z79.01 Long term (current) use of anticoagulants ==

== ENCOUNTER 2021-02-07 08:00 | Outpatient (CLI) | payer MEDICARE, OTHER | END 2021-02-07 23:59 | disposition home or self-care (01) | LOC: LAB.WCP 08:00 | PROVIDERS: ATTEND Family Medicine | DX: I48.91 Unspecified atrial fibrillation (principal); Z79.01 Long term (current) use of anticoagulants ==

== ENCOUNTER 2021-02-08 08:45 | Outpatient (CLI) | payer MEDICARE, OTHER ==
[2021-02-08] MEDS ORDERED: GADOBUTROL 10 MMOL/10 ML VIAL ONE (09:26)
--- NOTE | 2021-02-08 12:40 | MRI Report ---
PROCEDURE: Brain W/WO INDICATIONS: ABN BRAIN IMAGING CONTRAST: IV CONTRAST: Gadavist ml: 9 TECHNIQUE: Noncontrast axial T1 spin echo, axial T2 fast spin echo, sagittal and axial FLAIR, coronal T2 fast sp in echo, axial gradient echo, axial diffusion and ADC through the brain. After the administration of contrast, axial and coronal T1 spin echo with fat saturation through the brain. COMPARISON: Correlation is made with the prior head CT, 01/15/2021. 01/15/2021 FINDINGS: Image quality: Excellent. CSF spaces: Basal cisterns are patent. No extra-axial fluid collections. Ventricles are normal in size and shape. Brain: No midline shift. No intracranial bleeds or masses. Within the right medial aspect of the ce rebellum, there is faint poorly defined enhancement seen, as on series 1002 image 25. No abnormally i ncreased T2-weighted/FLAIR signal can be seen at this site. There is cerebral volume loss for age, pa rticularly involving the cerebellum. There is periventricular white matter chronic small vessel isch emic change. The brainstem appears normal. Diffusion-weighted images demonstrate no acute ischemic insults. No chronic ischemic insults. Normal intravascular flow voids are present. Skull and face: Calvarial marrow is normal in signal. Orbits appear normal. Incidental note is ma de of bilateral lens replacements. Sinuses: Sinuses and mastoids appear clear. IMPRESSION: Disproportionately prominent volume loss is seen involving the cerebellum. Within the right medial cerebellum, there is a focus of mildly increased enhancement, without associa jose rafael mass effect. No brain edema can be seen at this site. The clinical significance of this is uncert ain, although this is felt most likely to be a benign process. If clinically appropriate, please consider a follow-up brain MRI (without and with contrast) in 6-8 weeks for further evaluation. Reviewed by: Sanya French MD on 02/08/2021 11:39 AM RUST Approved by: Sanya French MD on 02/08/2021 11:39 AM RUST Station ID: [id number]
[2021-02-08] MEDS ORDERED: GADOBUTROL 10 MMOL/10 ML VIAL IVP ONE (16:24)
== END 2021-02-08 08:46 | disposition home or self-care (01) ==
LOC: DI 08:45
PROVIDERS: ATTEND Family Medicine
DX: R90.89 Other abnormal findings on diagnostic imaging of central nervous system (principal)
CPT/HCPCS: 70553; A9585

== ENCOUNTER 2021-02-11 08:00 | Outpatient (CLI) | payer MEDICARE, OTHER | END 2021-02-11 23:59 | disposition home or self-care (01) | LOC: LAB.N 08:00 | PROVIDERS: ATTEND Family Medicine | DX: I48.91 Unspecified atrial fibrillation (principal); Z79.01 Long term (current) use of anticoagulants ==

== ENCOUNTER 2021-02-16 08:00 | Outpatient (CLI) | payer MEDICARE, OTHER | END 2021-02-16 23:59 | disposition home or self-care (01) | LOC: LAB.N 08:00 | PROVIDERS: ATTEND Family Medicine | DX: I48.91 Unspecified atrial fibrillation (principal); Z79.01 Long term (current) use of anticoagulants ==

== ENCOUNTER 2021-02-23 08:00 | Outpatient (CLI) | payer MEDICARE, OTHER | END 2021-02-23 23:59 | disposition home or self-care (01) | LOC: LAB.N 08:00 | PROVIDERS: ATTEND Family Medicine | DX: I48.91 Unspecified atrial fibrillation (principal); Z79.01 Long term (current) use of anticoagulants ==

== ENCOUNTER 2021-03-02 08:00 | Outpatient (CLI) | payer MEDICARE, OTHER | END 2021-03-02 23:59 | disposition home or self-care (01) | LOC: LAB.N 08:00 | PROVIDERS: ATTEND Family Medicine | DX: I48.91 Unspecified atrial fibrillation (principal); Z79.01 Long term (current) use of anticoagulants ==

== ENCOUNTER 2021-03-30 08:00 | Outpatient (CLI) | payer MEDICARE, OTHER | END 2021-03-30 23:59 | disposition home or self-care (01) | LOC: LAB.N 08:00 | PROVIDERS: ATTEND Family Medicine | DX: I48.91 Unspecified atrial fibrillation (principal); Z79.01 Long term (current) use of anticoagulants ==

== ENCOUNTER 2021-04-06 08:00 | Outpatient (CLI) | payer MEDICARE, OTHER | END 2021-04-06 23:59 | disposition home or self-care (01) | LOC: LAB.N 08:00 | PROVIDERS: ATTEND Family Medicine | DX: I48.91 Unspecified atrial fibrillation (principal); Z79.01 Long term (current) use of anticoagulants ==

== ENCOUNTER 2021-04-13 08:00 | Outpatient (CLI) | payer MEDICARE, OTHER | END 2021-04-13 23:59 | disposition home or self-care (01) | LOC: LAB.N 08:00 | PROVIDERS: ATTEND Family Medicine | DX: I48.91 Unspecified atrial fibrillation (principal); Z79.01 Long term (current) use of anticoagulants ==

== ENCOUNTER 2021-04-20 08:00 | Outpatient (CLI) | payer MEDICARE, OTHER | END 2021-04-20 23:59 | disposition home or self-care (01) | LOC: LAB.N 08:00 | PROVIDERS: ATTEND Family Medicine | DX: I48.91 Unspecified atrial fibrillation (principal); Z79.01 Long term (current) use of anticoagulants ==

== ENCOUNTER 2021-05-04 08:00 | Outpatient (CLI) | payer MEDICARE, OTHER | END 2021-05-04 23:59 | disposition home or self-care (01) | LOC: LAB.N 08:00 | PROVIDERS: ATTEND Family Medicine | DX: I48.91 Unspecified atrial fibrillation (principal); Z79.01 Long term (current) use of anticoagulants ==

== ENCOUNTER 2021-05-11 07:50 | Outpatient (CLI) | payer MEDICARE, OTHER ==
[2021-05-11 08:35] LABS: ALBUMIN 4.1 g/dL (3.2-5.5); ALBUMIN/GLOBULIN RATIO 1.2 (1.0-2.2); BILIRUBIN,TOTAL 0.6 mg/dL (0.2-1.0); CALCIUM 9.4 mg/dL (8.5-10.3); CREATININE 0.8 mg/dL (0.4-1.0); POTASSIUM 3.7 mmol/L (3.5-5.0); TOTAL PROTEIN 7.6 g/dL (6.7-8.2)
== END 2021-05-11 07:51 | disposition home or self-care (01) ==
LOC: LAB 07:50
PROVIDERS: ATTEND Nurse Practitioner Acute Care
DX: I48.0 Paroxysmal atrial fibrillation (principal)
CPT/HCPCS: 36415; 80053; 84443

== ENCOUNTER 2021-06-09 08:54 | Outpatient (CLI) | payer MEDICARE, OTHER ==
[2021-06-09 09:17] LABS: CREATININE 0.7 mg/dL (0.4-1.0)
[2021-06-09] MEDS ORDERED: GADOBUTROL 10 MMOL/10 ML VIAL ONE (10:07)
--- NOTE | 2021-06-09 12:55 | MRI Report ---
PROCEDURE: Brain W/WO INDICATIONS: ABN BRAIN IMAGING CONTRAST: IV CONTRAST: Gadavist ml: 8.6 TECHNIQUE: Noncontrast axial T1 spin echo, axial T2 fast spin echo, sagittal and axial FLAIR, coronal T2 fast sp in echo, axial gradient echo, axial diffusion and ADC through the brain. After the administration of contrast, axial and coronal T1 spin echo with fat saturation through the brain. COMPARISON: 02/08/2021 FINDINGS: Image quality: Excellent. CSF spaces: Basal cisterns are patent. No extra-axial fluid collections. Ventricles are normal in size and shape. Brain: In this patient with this given history, scrutiny is given to the right medial cerebellum. At this site, abnormal enhancement is no longer seen. No enhancing masses can be seen throughout. No midline shift. No intracranial hemorrhage is seen. There is cerebral volume loss for age. There is periventricular white matter chronic small vessel ischemic change. The brainstem appears normal. Diffusion-weighted images demonstrate no acute ischemic insults. The cerebellum is again noted to be small. Normal intravascular flow voids are present. Skull and face: Calvarial marrow is normal in signal. Orbits appear normal. Incidental note is mad e of bilateral lens replacements. Sinuses: Sinuses and mastoids appear clear. IMPRESSION: The previously seen abnormal enhancement involving the right medial cerebellum is no longer seen. No masses or abnormal enhancement can be seen elsewhere. Disproportionate cerebellar atrophy again noted. Reviewed by: Sanya French MD on 06/09/2021 11:54 AM GURINDER Approved by: Sanya French MD on 06/09/2021 11:54 AM GURINDER Station ID: [id number]
[2021-06-09] MEDS ORDERED: GADOBUTROL 10 MMOL/10 ML VIAL IVP ONE (16:24)
== END 2021-06-09 08:55 | disposition home or self-care (01) ==
LOC: DI 08:54
PROVIDERS: ATTEND Family Medicine
DX: R90.89 Other abnormal findings on diagnostic imaging of central nervous system (principal)
CPT/HCPCS: 36415; 70553; 82565; A9585

== ENCOUNTER 2021-06-29 08:00 | Outpatient (CLI) | payer MEDICARE, OTHER | END 2021-06-29 23:59 | disposition home or self-care (01) | LOC: LAB.WCP 08:00 | PROVIDERS: ATTEND Family Medicine | DX: I48.91 Unspecified atrial fibrillation (principal); Z79.01 Long term (current) use of anticoagulants ==

== ENCOUNTER 2021-07-04 08:00 | Outpatient (CLI) | payer MEDICARE, OTHER | END 2021-07-04 23:59 | disposition home or self-care (01) | LOC: LAB.N 08:00 | PROVIDERS: ATTEND Family Medicine | DX: I48.91 Unspecified atrial fibrillation (principal); Z79.01 Long term (current) use of anticoagulants ==

== ENCOUNTER 2021-07-11 08:00 | Outpatient (CLI) | payer MEDICARE, OTHER | END 2021-07-11 08:01 | disposition home or self-care (01) | LOC: LAB.WCP 08:00 | PROVIDERS: ATTEND Family Medicine | DX: I48.91 Unspecified atrial fibrillation (principal); Z79.01 Long term (current) use of anticoagulants ==

== ENCOUNTER 2021-07-20 08:00 | Outpatient (CLI) | payer MEDICARE, OTHER | END 2021-07-20 23:59 | LOC: LAB.N 08:00 | PROVIDERS: ATTEND Family Medicine | DX: I48.91 Unspecified atrial fibrillation (principal); Z79.01 Long term (current) use of anticoagulants ==

== ENCOUNTER 2021-07-29 08:00 | Outpatient (CLI) | payer MEDICARE, OTHER | END 2021-07-29 23:59 | disposition home or self-care (01) | LOC: LAB.N 08:00 | PROVIDERS: ATTEND Family Medicine | DX: I48.91 Unspecified atrial fibrillation (principal); Z79.01 Long term (current) use of anticoagulants ==

== ENCOUNTER 2021-08-03 08:00 | Outpatient (CLI) | payer MEDICARE, OTHER | END 2021-08-03 23:59 | disposition home or self-care (01) | LOC: LAB.N 08:00 | PROVIDERS: ATTEND Family Medicine | DX: I48.91 Unspecified atrial fibrillation (principal); Z79.01 Long term (current) use of anticoagulants ==